=== PATIENT | female | born 1990 | race Native Hawaiian/Other Pacific Islander ===

== ENCOUNTER 2018-06-13 10:10 | Emergency (ER) | payer SELFPAY ==
[2018-06-13 10:13] VITALS: BMI 22.3
--- NOTE | 2018-06-13 10:58 | ED PDOC ---
HPI: Back Time Seen by Provider: 06/13/18 10:56 Chief Complaint (Nursing): Back Pain Chief Complaint (Provider): back pain History Per: Patient (28 y/o female here with back pain that occurred after triping downstairs today at 8am. Patient denies any LOC. Notes moderate generalized back pain worse with movement. ) Past Medical History Reviewed: Historical Data, Nursing Documentation, Vital Signs Vital Signs: Last Vital Signs Temp 98.1 F 06/13/18 10:12 Pulse 75 06/13/18 10:12 Resp BP 115/79 06/13/18 10:12 Pulse Ox 98 06/13/18 10:12 - Family History Family History: States: No Known Family Hx - Home Medications Home Medications: Ambulatory Orders Medication Instructions Recorded Naproxen 375 mg PO Q8 PRN #21 tablet 06/13/18 diaZEpam [Valium] 5 mg PO Q8 PRN #2 tab 06/13/18 - Allergies Allergies/Adverse Reactions: Allergies Allergy/AdvReac Type Severity Reaction Status Date / Time ammonia Allergy RASH Verified 06/13/18 10:32 Review of Systems ROS Statement: Except As Marked, All Systems Reviewed And Found Negative Physical Exam - Reviewed Nursing Documentation Reviewed: Yes Vital Signs Reviewed: Yes - Physical Exam Appears: Positive for: Well, Non-toxic, No Acute Distress Head Exam: Positive for: ATRAUMATIC, NORMAL INSPECTION, NORMOCEPHALIC Skin: Positive for: Normal Color, Warm, DRY Eye Exam: Positive for: EOMI, Normal appearance, PERRL ENT: Positive for: Normal ENT Inspection Neck: Positive for: Normal, Painless ROM Cardiovascular/Chest: Positive for: Regular Rate, Rhythm Respiratory: Positive for: CNT, Normal Breath Sounds Gastrointestinal/Abdominal: Positive for: Normal Exam, Soft Back: Positive for: Normal Inspection, Other (moderate paralumbar tenderness bilateral. No bony tenderness noted.) Extremity: Positive for: Normal ROM Neurologic/Psych: Positive for: Alert, Oriented - ECG O2 Sat by Pulse Oximetry: 98 Disposition - Clinical Impression Clinical Impression: Muscle strain - Patient ED Disposition Is Patient to be Admitted: No - Disposition Disposition: Routine/Home Disposition Time: 12:53 Condition: FAIR Prescriptions: diaZEpam [Valium] 5 mg PO Q8 PRN #2 tab PRN Reason: Muscle Spasm Naproxen 375 mg PO Q8 PRN #21 tablet PRN Reason: Pain, Moderate (4-7) Instructions: Muscle Strain (DC) Forms: [facility] ED School/Work Excuse
[2018-06-13 13:07] VITALS: BP 123/60; PULSE 84; RESP 14; TEMP 99.8; O2SAT 100
== END 2018-06-13 13:09 | disposition home or self-care (01) ==
LOC: H.ER 10:10
DX: S39.012A Strain of muscle, fascia and tendon of lower back, initial encounter (principal); S29.012A Strain of muscle and tendon of back wall of thorax, initial encounter; W10.9XXA Fall (on) (from) unspecified stairs and steps, initial encounter
CPT/HCPCS: 81025; 96372; 99284; J1885